=== PATIENT | male | born 1990 | race Hispanic/Latino ===

== ENCOUNTER 2021-06-15 07:51 | Emergency (ER) | payer SELFPAY ==
[~2021-06-15] VITALS: Ht 172.7 cm; Wt 68.0 kg
[2021-06-15 07:55] VITALS: BP 116/82
[2021-06-15] MEDS ORDERED: POLY10DR22 OD (08:37)
== END 2021-06-15 08:45 | disposition home or self-care (01) ==
LOC: EDH 07:51
DX: H10.9 Unspecified conjunctivitis (principal)